=== PATIENT | male | born 1975 | race Two or more races ===

== ENCOUNTER 2021-02-02 14:20 | Emergency (ER) | payer SELFPAY ==
[~2021-02-02] VITALS: Ht 172.7 cm; Wt 81.2 kg
[2021-02-02 16:42] VITALS: BP 137/72
[2021-02-02] MEDS ORDERED: IBUPROFEN 800 MG TAB PO ONE (17:45)
== END 2021-02-02 17:54 | disposition home or self-care (01) ==
LOC: ER 14:20
DX: S29.012A Strain of muscle and tendon of back wall of thorax, initial encounter (principal); M51.34 Other intervertebral disc degeneration, thoracic region; Z90.49 Acquired absence of other specified parts of digestive tract; Z90.89 Acquired absence of other organs; X50.0XXA Overexertion from strenuous movement or load, initial encounter; Y93.89 Activity, other specified; Y92.89 Other specified places as the place of occurrence of the external cause; Y99.8 Other external cause status
CPT/HCPCS: 72070